=== PATIENT | female | born 1960 | race Two or more races ===

== ENCOUNTER 2018-10-18 16:22 | Emergency (ER) | payer OTHER ==
[~2018-10-18] VITALS: Ht 170.2 cm; Wt 81.6 kg
[2018-10-18] MEDS ORDERED: METFORMIN HCL500 MG (16:43)
[2018-10-18] MEDS ORDERED: ENALAPRIL MALE2.5 MG (16:43)
[2018-10-18] MEDS ORDERED: LANTUS SOL100 UNIT/1 (16:43)
== END 2018-10-18 18:01 | disposition home or self-care (01) ==
LOC: ER 16:22
DX: H10.11 Acute atopic conjunctivitis, right eye (principal)

== ENCOUNTER 2021-01-01 07:45 | Outpatient (CLI) | payer OTHER ==
[~2021-01-01 07:45] MED LIST: ENALAPRIL MALE2.5 MG; LANTUS SOL100 UNIT/1; METFORMIN HCL500 MG
== END 2021-01-01 08:07 | disposition home or self-care (01) ==
LOC: RAD 07:45 → MAMO-SONO 07:45 → RAD 08:07 → MRI 10:15
PROVIDERS: ATTEND General Practice
DX: M22.41 Chondromalacia patellae, right knee (principal); E11.69 Type 2 diabetes mellitus with other specified complication; M25.561 Pain in right knee; Z13.89 Encounter for screening for other disorder; Z12.39 Encounter for other screening for malignant neoplasm of breast; R10.84 Generalized abdominal pain
CPT/HCPCS: 73721

== ENCOUNTER 2021-12-13 12:34 | Emergency (ER) | payer OTHER ==
[~2021-12-13] VITALS: Ht 170.2 cm; Wt 83.0 kg
== END 2021-12-13 15:01 | disposition home or self-care (01) ==
LOC: ER 12:34
DX: S80.12XA Contusion of left lower leg, initial encounter (principal); W18.30XA Fall on same level, unspecified, initial encounter; Y93.01 Activity, walking, marching and hiking; Y92.018 Other place in single-family (private) house as the place of occurrence of the external cause; Y99.9 Unspecified external cause status

== ENCOUNTER 2024-12-27 09:13 | Inpatient (IN) | payer OTHER ==
[~2024-12-27] VITALS: Ht 170.2 cm; Wt 83.9 kg
[2024-12-27] MEDS ORDERED: ATORVASTATIN CA20 MG PO (09:39)
[2024-12-27] MEDS ORDERED: ONDANSETRON HCL 2 MG/ML VIAL ONE ×2 (10:42→18:13)
[2024-12-27] MEDS ORDERED: KETOROLAC TROMETHAMINE 30 MG VIAL ONE (10:42)
[2024-12-27] MEDS ORDERED: FAMOTIDINE/PF 20 MG/2 ML VIAL ONE (10:43)
[2024-12-27] MEDS ORDERED: ONDANSETRON HCL 2 MG/ML VIAL IV ONE (10:45)
[2024-12-27] MEDS ORDERED: KETOROLAC TROMETHAMINE 30 MG VIAL IU ONE (10:45)
[2024-12-27] MEDS ORDERED: FAMOtidine 10 MG/ML (4ML VIAL) IV ONE (10:45)
[2024-12-27 11:16] LABS: HEMATOCRIT 49.2 % (36.0-45.00); HEMOGLOBIN 16.1 g/dL (12.0-15.00); MEAN CELL VOLUME 88.6 fL (80.00-100.00); MEAN CORPUSCULAR HGB CONC 32.8 g/dl (32.0-36.0); PLATELET COUNT 364 K/uL (150-450); RED BLOOD COUNT 5.56 M/uL (4.00-6.00); RED CELL DISTRIBUTION WIDTH 13.8 % (11.5-14.5)
[2024-12-27 11:41] LABS: PARTIAL THROMBOPLASTIN TIME 29.6 SECONDS (22.0-34.0); PROTHROMBIN TIME 10.9 SECONDS (9.0-11.5)
[2024-12-27 11:47] LABS: ALBUMIN 3.9 gm/dL (3.4-5.0); BILIRUBIN TOTAL 0.98 mg/dL (0.3-1.2); CALCIUM 9.4 mg/dL (8.5-10.1); CREATININE SERUM 0.82 mg/dL (0.55-1.02); GFR 69.75; GLOBULINA 3.6 G/DL (2.4-3.5); POTASSIUM 3.75 mEq/L (3.5-5.1); TOTAL PROTEIN 7.5 gm/dL (6.4-8.2)
[2024-12-27 11:49] LABS: PH,URINE 6.5 (5.0-8.0); URINE APPEARANCE Cloudy; URINE BILIRRUBIN Negative (NEGATIVE); URINE BLOOD Negative; URINE COLOR Dark Yellow; URINE LEUKOCYTE Negative; URINE NITRATE Negative; URINE PROTEIN 30 (NEGATIVE)
[2024-12-27 11:53] LABS: URINE CAST 1.54 uL (0.0-1.40); URINE EPITHELIAL CELLS 64.9 uL (0.0-38.8); URINE WBC 44.1 uL (0.0-23.2)
[2024-12-27 13:58] LABS: URINE BACTERIA > 9821.5 uL (0.0-1933); URINE GLUCOSE >=1000 MG/DL (NEGATIVE); URINE KETONE >=160 (NEGATIVE)
[2024-12-27] MEDS ORDERED: 0.9 % SODIUM CHLORIDE 1,000 ML IV ONE (15:15)
[2024-12-27] MEDS ORDERED: LIDOCAINE HCL VISCOUS 20MG/ML BLIST 15ML MM ONE (16:58)
[2024-12-27] MEDS ORDERED: 0.9 % SODIUM CHLORIDE 1,000 ML IV SCH (17:45)
[2024-12-27] MEDS ORDERED: PIPERACILLIN/TAZOBACTAM SODIUM 3.375 GM in DEXTROSE 5 % IN WATER 100 ML IV SCH (18:00)
[2024-12-27] MEDS ORDERED: MORPHINE SULFATE 4 MG/ML CARTRIDGE IV PRN (18:00)
[2024-12-27] MEDS ORDERED: ENALAPRILAT DIHYDRATE 1.25 MG/ML VIAL IV PRN (18:00)
[2024-12-27] MEDS ORDERED: INSULIN LISPRO 1,000 UNIT/10 ML UNITS SUBCUTANEO PRN (18:00)
[2024-12-27] MEDS ORDERED: ACETAMINOPHEN 500 MG GEL..CAP PO PRN (18:00)
[2024-12-27] MEDS ORDERED: ONDANSETRON HCL 4 MG in 0.9 % SODIUM CHLORIDE 50 ML IV PRN (18:00)
[2024-12-27] MEDS ORDERED: MORPHINE SULFATE 4 MG/ML CARTRIDGE IV ONE (18:00)
[2024-12-27] MEDS ORDERED: DEXTROSE 50 % IN WATER 0.5 G/ML DISP.SYRIN IV PRN (18:00)
[2024-12-27] MEDS ORDERED: PIPERACILLIN/TAZOBACTAM SODIUM 3.375 GM VIAL IV ONE (18:13)
[2024-12-27] MEDS ORDERED: INSULIN LISPRO 1,000 UNIT/10 ML UNITS SUBCUTANEO ONE (18:26)
[2024-12-28 02:57] VITALS: BP 116/75
[2024-12-28 07:30] VITALS: BP 117/75
[2024-12-28] MEDS ORDERED: ENOXAPARIN SODIUM 40 MG/0.4 ML SYRINGE SUBCUTANEO SCH (09:00)
[2024-12-28] MEDS ORDERED: FAMOTIDINE/PF 20 MG in 0.9 % SODIUM CHLORIDE 8 ML IV PUSH SCH (09:00)
[2024-12-28 18:21] VITALS: BP 140/88
[2024-12-29 02:19] VITALS: BP 107/68; O2SAT 99
[2024-12-29 09:06] VITALS: BP 116/71; O2SAT 98
[2024-12-29 17:25] VITALS: BP 144/83
== END 2024-12-29 22:24 | disposition home or self-care (01) | DRG 390 ==
LOC: ER 09:15 → SEC-K 18:20 → MEDJ 18:20
PROVIDERS: General Practice; ADMIT Internal Medicine Pulmonary Disease; ATTEND Internal Medicine Pulmonary Disease
PROC: BW21YZZ Computerized Tomography (CT Scan) of Abdomen and Pelvis using Other Contrast (ICD-10-PCS; principal; 2024-12-27)
DX: K56.609 Unspecified intestinal obstruction, unspecified as to partial versus complete obstruction (principal); I10 Essential (primary) hypertension; E11.9 Type 2 diabetes mellitus without complications; Z79.4 Long term (current) use of insulin; E78.5 Hyperlipidemia, unspecified